=== PATIENT | female | born 1955 | race Caucasian/White ===

== ENCOUNTER 2022-06-11 22:20 | Emergency (ER) | payer MEDICARE, BC ==
[2022-06-12 00:35] LABS: CARBON DIOXIDE,CO2 27.9 mmol/L (21.0-32.0); POTASSIUM,K 4.3 mmol/L (3.5-5.1)
== END 2022-06-12 02:20 | disposition home or self-care (01) ==
LOC: MW.ED 22:20
DX: M79.604 Pain in right leg (principal)
CPT/HCPCS: 36415; 80053; 85025; 93971-RT; 99283; 99284